=== PATIENT | female | born 1975 | race Caucasian/White ===

== ENCOUNTER 2025-07-09 09:54 | Inpatient (IN) ==
[2025-07-09 10:17] LABS: BLOOD/HEMOGLOBIN,URINE NEGATIVE (NEGATIVE); LEUKOCYTE ESTERASE ,URINE 1+ (NEGATIVE); NITRITES,URINE NEGATIVE (NEGATIVE)
--- NOTE | 2025-07-09 10:25 | DR.GENAD ---
HPI Time Seen Time Seen by Provider: 07/09/25 10:18 PCP Primary Care Physician: [facility] Complaint/Symptoms Chief Complaint Doctors Comments: 49 yo F, hx kidney stones, no other med hx, surg hx of complete hysterectomy, c/o R flank pain and RLQ abd pain for past 6 days. Denies other symptoms. Denies fever/chills, n/v/d. denies urinary symptoms. Chief Complaint:: Patient states she has been having right flank pain, RLQ radiating to right lower back since last . She Saw her PCP and had a CT scan in [place] on Monday. Today she states her RLQ is edematous COVID-19 Coronavirus risk:travel/contact w/high risk person: No Has patient experienced Coronavirus symptoms: No Source History Provided: Patient Mode of Arrival Mode of Arrival: Ambulatory Timing Onset of Chief Complaint: 07/03/25 PMH PMH Past Medical History: No Past Surgical History: Yes Surgical History: , [employer] CORE SAND Surgery, Hysterectomy and Tonsillectomy Past Surgical History Comment: breast reduction Family History History of Family Medical Conditions: Yes Family Medical History: Diabetes Mellitus, Cancer, Coronary Artery Disease, Heart Failure, Sudden Cardiac and Hypertension Social History Does patient currently use any type of tobacco product: No Have you used tobacco products in the last 12 months: No Type of Tobacco Use: None Does any household member use tobacco: No Alcohol Use: Rarely Do you use any recreational Drugs:: No Lives With: Spouse Travel Risk Coronavirus risk:travel/contact w/high risk person: No Has patient experienced Coronavirus symptoms: No Infectious screening In the last 2 months have you had wt loss of >10#?: NO Have you had fever, night sweats or hemotysis?: No Have you traveled outside the country in the last 6 months?: No Isolation: Standard ROS Review of Systems Gastrointestinal/Abdominal: Abdominal Pain (RLQ) Genitourinary: Pain (R flank) All Other Systems: Reviewed and Negative PE Vital Signs Vitals: Vital Signs Temperature 98.8 F Pulse Rate 70 Respiratory Rate 16 Respiratory Rate 16 Respiratory Rate 16 Blood Pressure 134/75 O2 Sat by Pulse Oximetry 99 General Limitations: No Limitations General Appearance: Alert and In No Apparent Distress Head Head Exam: Normal Inspection Eyes Eye exam: Normal Appearance ENT ENT Exam: Normal Exam External Ear Exam: Normal External Inspection TM/Canal Exam: Bilateral: Normal Nose Exam: Normal Nose Exam Mouth Exam: Normal Inspection Throat Exam: Normal Inspection Neck Neck Exam: Normal Inspection Chest Chest Inspection: Normal Inspection Respiratory Respiratory Exam: Normal Lung Sounds Bilat Respiratory Exam: Bilateral: Clear to Auscultation Cardiovascular Cardiovascular Exam: Regular Rate and Normal Rhythm Abdominal Exam Abdominal Exam: Normal Bowel Sounds, Soft, Tenderness (RLQ), Guarding and Rebound Extremities Extremities Exam: Normal Inspection Back Back Exam: Normal Inspection Neurologic Neurological Exam: Alert and Oriented X3 Psychiatric Psychiatric Exam: Normal Affect and Normal Mood Skin Skin Exam: Warm, Dry, Intact and Normal Color ROR Labs Reviewed Laboratory Results Reviewed?: Yes 07/09/25 10:07/09/25 10: Laboratory: WBC 5.4 X10^3/uL (3.6-10.0) 07/09/25 10: RBC 4.93 X10^6/uL (3.5-5.4) 07/09/25 10: Hgb 14.3 g/dL (12.0-16.0) 07/09/25 10: Hct 42.0 % (36.0-47.0) 07/09/25 10: MCV 85.3 fL (80.0-100.0) 07/09/25 10: MCH 29.1 pg (27.0-34.0) 07/09/25 10: MCHC 34.1 g/dL (33.0-35.0) 07/09/25 10: RDW 13.6 % (11.6-16.5) 07/09/25 10: Plt Count 295 X10^3/uL (150.0-450.0) 07/09/25 10: MPV 7.3 fL (7.4-11.0) L 07/09/25 10: Neut % (Auto) 64.7 % (42.0-75.0) 07/09/25 10: Lymph % (Auto) 26.6 % (21.0-51.0) 07/09/25 10: [place] % (Auto) 6.0 % (0.0-13.0) 07/09/25 10: Eos % (Auto) 2.3 % (0.9-2.9) 07/09/25 10: Baso % (Auto) 0.4 % (0.2-1.0) 07/09/25 10: Neut # (Auto) 3.5 x10^3/uL (2.2-4.8) 07/09/25 10:26 Lymph # (Auto) 1.4 X10^3/uL (1.3-2.9) 07/09/25 10: [place] # (Auto) 0.3 x10^3/uL (0.3-0.8) 07/09/25 10: Eos # (Auto) 0.1 x10^3/uL (0.0-0.2) 07/09/25 10: Baso # (Auto) 0.0 X10^3/uL (0.0-0.1) 07/09/25 10: Absolute Nucleated RBC 0.0 /100WBC 07/09/25 10: Sodium 139 mmol/L (136-145) 07/09/25 10: Corrected Sodium TNP 07/09/25 10: Potassium 4.2 mmol/L (3.5-5.1) 07/09/25 10: Chloride 103 mmol/L (98-107) 07/09/25 10: Carbon Dioxide 32.1 mmol/L (21-32) H 07/09/25 10: BUN 10 mg/dL (7-18) 07/09/25 10: Creatinine 0.66 mg/dL (0.55-1.02) 07/09/25 10: Est GFR (MDRD) Af Amer > 60 (>60) 07/09/25 10: Est GFR (MDRD) Non-Af > 60 (>60) 07/09/25 10: Glucose 100 mg/dL (65-99) H 07/09/25 10: Calcium 9.4 mg/dL (8.5-10.1) 07/09/25 10: Corrected Calcium TNP 07/09/25 10: Total Bilirubin 0.30 mg/dL (0.2-1.0) 07/09/25 10: AST 15 Units/L (15-37) 07/09/25 10: ALT 13 Units/L (12-78) 07/09/25 10: Alkaline Phosphatase 99 Units/L (46-116) 07/09/25 10: Total Protein 7.7 g/dL (6.4-8.2) 07/09/25 10: Albumin 3.9 g/dL (3.4-5.0) 07/09/25 10: Globulin 3.8 g/dL (2.5-4.5) 07/09/25 10: Albumin/Globulin Ratio 1.0 Ratio (1.1-2.1) L 07/09/25 10: Lipase 39 Units/L (16-77) 07/09/25 10:26 Specimen Type Clean catch urine 07/09/25 10:00 Urine Color Straw (YELLOW) 07/09/25 10:00 Urine Appearance Clear (CLEAR) 07/09/25 10:00 Urine pH 6.5 (5.0 - 8.0) 07/09/25 10:00 Ur Specific [place] 1.010 (1.000-1.030) 07/09/25 10:00 Urine Protein Negative (NEGATIVE) 07/09/25 10:00 Urine Glucose (UA) Negative (NEGATIVE) 07/09/25 10:00 Urine Ketones Negative (NEGATIVE) 07/09/25 10:00 Urine Blood Negative (NEGATIVE) 07/09/25 10:00 Urine Nitrite Negative (NEGATIVE) 07/09/25 10:00 Urine Bilirubin Negative (NEGATIVE) 07/09/25 10:00 Urine Urobilinogen Normal (NORMAL) 07/09/25 10:00 Ur Leukocyte Esterase 1+ (NEGATIVE) 07/09/25 10:00 Urine RBC None seen /HPF (0-3) 07/09/25 10:00 Urine WBC 0-2 /HPF (0-5) 07/09/25 10:00 Ur Squamous Epith Cells Rare /HPF (NEGATIVE) 07/09/25 10:00 Urine Bacteria Negative /HPF (NEGATIVE) 07/09/25 10:00 Ur Culture Indicated? No/not indicated 07/09/25 10:00 Opioid Opioid Risk Tool Age (Cooper box if 16-45): No History of Preadolescent Sexual Abuse: No Total: 0 Total Score Risk Category: Low Risk Copyright: Darrick DEL TORO predicting aberrant behaviors Discharge Plan Diagnosis Discharge Problem: Abdominal mass, right lower quadrant, Free fluid in pelvis Discharge Plan Patient Disposition: ADMITTED INPATIENT Condition: Stable Prescriptions: No Action [facility] Concerns: Post Hospitalization: new medications and changes needed to prevent readmission or further decline. Pt educated and given instructions on all concerns. Plan of Treatment: Continue with present treatment and follow up plan. Pt is to keep follow up appointment as instructed and take medications as ordered. Orders to Discharge Patient Discharge Orders: Transfer (Routine); Ordered 07/09/25 Ordered By: Jose David Jenkins Follow ups/Referrals Follow ups/Referrals: [facility],None [Primary Care Provider] - 3 days Instructions Stand Alone Forms: Find Help Web Site, Post Hospital Follow Up Care Print Language: VENEZUEL[place] Provider Note Additional Notes spoke with Dr Bryant who agrees to admit pt for further evaluation for possible surgery on Ovarian Mass & abd free fluid.
[2025-07-09] MEDS: TORADOL 15 MG VIAL IVP ONE (10:30)
[2025-07-09 10:33] LABS: APPEARANCE,URINE CLEAR (CLEAR)
[2025-07-09 10:34] LABS: SQUAMOUS EPITHELIAL CELL,UR RARE /HPF (NEGATIVE)
[2025-07-09 10:36] LABS: MEAN PLATELET VOLUME 7.3 fL (7.4-11.0); RED CELL DISTRIBUTION WIDTH 13.6 % (11.6-16.5)
[2025-07-09 10:56] LABS: CREATININE 0.66 mg/dL (0.55-1.02); eGFR NON BLACK RACES > 60 (>60)
[2025-07-09] MEDS ORDERED: OMNIPAQUE 350 mg/mL 100 mL BTL 100 ML ONE (10:59)
[2025-07-09] MEDS: OMNIPAQUE 350 mg/mL 100 mL BTL IVP NR (11:08)
--- NOTE | 2025-07-09 12:57 | CT ---
EXAM: CT abdomen pelvis with contrast HISTORY: Right lower quadrant pain TECHNIQUE: Axial postcontrast images with coronal and sagittal reformats. Dose reduction procedures were used with mA/kv adjusted for body size. COMPARISON: None FINDINGS: Lung bases are clear. Liver, spleen, adrenal glands, and pancreas are within normal limits. No opaque stones present within the gallbladder. Kidneys are unobstructed and without stones or masses. No ureteral calculi are identified. Mild calcific atherosclerotic changes present in a nondilated abdominal aorta. No enlarged intraperitoneal or retroperitoneal lymphadenopathy is identified. The appendix is not identified with absolute certainty. There are no definite pericecal inflammatory changes to suggest acute appendicitis. However there is a moderately large amount of fluid in the lower peritoneum and pelvis. The source of this fluid may be a leaking 6.4 x 3.5 by 3.3 cm septated right adnexal mass. Uterus is absent and the ovaries are not definitely visualized. This could still be a right ovarian mass or perhaps paraovarian or mesenteric mass. Correlation with pelvic sonography may be of further diagnostic value. Video Production Engineer or surgical evaluation may be indicated. No bladder abnormality is identified. No lytic or blastic skeletal lesions of significance identified. IMPRESSION: Appendix not identified with absolute certainty. No secondary signs of appendicitis appear to be present. Large amount of fluid in the lower peritoneum and in the pelvis possibly due to a leaking septated cystic right adnexal mass measuring approximatly 6.4 x 3.5 x 3.3 cm. Pelvic sonography may be of further diagnostic value. Video Production Engineer or surgical evaluation may be indicated. THIS IS AN ELECTRONICALLY VERIFIED FINAL REPORT 07/09/2025 12:53 PM - Electronically signed by Nathen Stark MD
--- NOTE | 2025-07-09 13:59 | EKG ---
Test Reason : pre-op Blood Pressure : */* mmHG Vent. Rate : 62 BPM Atrial Rate : 62 BPM P-R Int : 132 ms QRS Dur : 84 ms QT Int : 406 ms P-R-T Axes : 51 28 49 degrees QTc Int : 412 ms Normal sinus rhythm Low voltage QRS Borderline ECG No previous ECGs available Confirmed by Marek Marroquin MD ([id number]) on 07/10/2025 5:55:41 AM Referred By: Confirmed By: Marek Marroquin MD
[2025-07-09] MEDS ORDERED: CONSULT PHARMACY - POTASSIUM & MAGNESIUM XX SCH (14:16)
[2025-07-09] MEDS ORDERED: ULTRAM PO PRN (14:16)
[2025-07-09] MEDS ORDERED: ZOFRAN TAB 4 MG PO PRN (14:16)
[2025-07-09] MEDS ORDERED: TYLENOL 325 MG TAB PO PRN (14:16)
[2025-07-09] MEDS: NS 1,000 ML IV 1,000 ML IV SCH (14:34)
[2025-07-09 15:13] VITALS: BMI 30.7
--- NOTE | 2025-07-09 17:33 | US ---
EXAM: PELVIC (NON OB) HISTORY: PELVIC MASS; COMPARISON: CT of the abdomen and pelvis July 09, 2025 TECHNIQUE: Non obstetrical pelvic ultrasound FINDINGS: The uterus is reported surgically absent. Ovaries are reported surgically absent and unseen. Moderate volume of free fluid is present in the pelvis. Complex, hypoechoic right adnexal mass is present spanning 6.5 X 5.1 X 4.6 cm, nonspecific in appearance. IMPRESSION: Indeterminate right adnexal mass with a moderate volume of free fluid. The etiology is uncertain but malignant mass can not be excluded and gynecological evaluation is suggested. Prior hysterectomy and bilateral oophorectomy reported. THIS IS AN ELECTRONICALLY VERIFIED FINAL REPORT 07/09/2025 5:29 PM - Electronically signed by Eder Abad MD
[2025-07-09] MEDS: ANCEF VIAL 1 GRAM IVP SCH (21:21)
[2025-07-09] MEDS: TORADOL 30 MG VIAL IVP PRN (21:22)
--- NOTE | 2025-07-09 22:29 | RAD ---
EXAM: CHEST, 1 VIEW HISTORY: surgical clearence; surgical clearence ABD COMPARISON: None. TECHNIQUE: Single frontal chest radiograph FINDINGS: Cardiomediastinal silhouette within normal limits. Lungs clear. Pleural spaces are clear. Bones unremarkable. IMPRESSION: No active pulmonary disease. THIS IS AN ELECTRONICALLY VERIFIED FINAL REPORT 07/09/2025 10:15 PM - Electronically signed by Patrice Patton MD
[2025-07-10] MEDS: HIBICLENS WASH EXT ONE (05:10)
[2025-07-10 05:50] LABS: MEAN PLATELET VOLUME 7.5 fL (7.4-11.0); RED CELL DISTRIBUTION WIDTH 13.8 % (11.6-16.5)
[2025-07-10 05:59] LABS: COR CA(FOR HYPOALB) 9.1 mg/dL (8.5-10.1); CREATININE 0.75 mg/dL (0.55-1.02); eGFR NON BLACK RACES > 60 (>60)
[2025-07-10] MEDS ORDERED: XYLOCAINE 2 % (PLAIN) ONE (08:00)
[2025-07-10] MEDS ORDERED: KETAMINE HCL ONE (08:00)
[2025-07-10] MEDS ORDERED: ULTANE GAS IN ONE (08:00)
[2025-07-10] MEDS: ZOFRAN INJ 4 MG VIAL IVP PRN ×2 (11:04→13:45)
[2025-07-10] MEDS: LR 1,000 ML IV 0 ML IV PRN (13:30)
[2025-07-10] MEDS: DUONEB 0.5 MG/3 MG (3 mL) NEB ONE (13:41)
[2025-07-10] MEDS: LR 1,000 ML IV 1,000 ML IV ONE (13:43)
[2025-07-10] MEDS: NS 100 ML IV 100 ML ONE (13:44)
[2025-07-10] MEDS: REGLAN INJ 10 MG VIAL IVP PRN (13:45)
[2025-07-10] MEDS: PEPCID 20 MG VIAL IVP PRN (13:45)
[2025-07-10] MEDS: ANCEF VIAL 1 GRAM ONE (13:45)
[2025-07-10] MEDS: FENTANYL VIAL INJ 250 mcg ONE (13:48)
[2025-07-10] MEDS: VERSED ONE (13:48)
[2025-07-10] MEDS: REGLAN INJ 10 MG VIAL ONE (13:49)
[2025-07-10] MEDS: ZOFRAN INJ 4 MG VIAL ONE (13:49)
[2025-07-10] MEDS: PEPCID 20 MG VIAL ONE (13:53)
[2025-07-10] MEDS: MARCAINE/EPINEPHRINE ONE (13:55)
[2025-07-10] MEDS: BRIDION ONE (13:56)
[2025-07-10] MEDS: DIPRIVAN VIAL 20 ML ONE (13:56)
[2025-07-10] MEDS: ZEMURON 100 MG VIAL ONE (13:56)
[2025-07-10] MEDS: VERSED IVP PRN (13:58)
[2025-07-10] MEDS: OFIRMEV IV 1000 MG VIAL 1,000 MG/100 ML VIAL IV ONE (13:59)
[2025-07-10] MEDS: ANCEF VIAL 1 GRAM IV PRN (14:00)
[2025-07-10] MEDS: XYLOCAINE 2 % (PLAIN) INJ PRN (14:07)
[2025-07-10] MEDS: DIPRIVAN VIAL 170 ML IVP PRN (14:08)
[2025-07-10] MEDS: ZEMURON 100 MG VIAL IVP PRN ×2 (14:08→15:44)
[2025-07-10] MEDS: FENTANYL VIAL INJ 100 mcg IVP PRN ×2 (14:21→15:43)
[2025-07-10] MEDS: KETAMINE HCL IV PRN (14:31)
[2025-07-10] MEDS: POLYMYXIN B SULFATE ONE (14:32)
[2025-07-10] MEDS ORDERED: ANCEF VIAL 1 GRAM 1 G in NS 100 ML IV 100 ML IV SCH (15:00)
[2025-07-10] MEDS ORDERED: BENADRYL INJ 50 MG VIAL IVP PRN (15:25)
[2025-07-10] MEDS ORDERED: BARHEMSYS INJ IVP PRN (15:25)
[2025-07-10] MEDS ORDERED: ZOFRAN INJ 4 MG VIAL IVP PRN (15:25)
[2025-07-10] MEDS: TORADOL 30 MG VIAL IVP PRN (15:43)
[2025-07-10] MEDS: OFIRMEV IV 1000 MG VIAL 1,000 MG/100 ML VIAL IV PRN (15:54)
[2025-07-10] MEDS: BRIDION IVP PRN (16:05)
[2025-07-10] MEDS: DILAUDID INJ IVP PRN ×2 (16:43→20:04)
[2025-07-10] MEDS: ZOSYN VIAL 3.375 GRAMS 3.375 G in NS 100 ML IV 100 ML IV SCH (17:14)
[2025-07-10] MEDS: D5 1/2 NS 1,000 ML 1,000 ML IV SCH (17:14)
[2025-07-10] MEDS: NS 250 ML IV 25 ML IV PRN (17:21)
[2025-07-10] MEDS: PROTONIX INJ 40 MG VIAL IVP SCH (21:09)
[2025-07-11 07:01] LABS: MEAN PLATELET VOLUME 7.7 fL (7.4-11.0); RED CELL DISTRIBUTION WIDTH 13.9 % (11.6-16.5)
[2025-07-11 07:10] LABS: COR CA(FOR HYPOALB) 8.8 mg/dL (8.5-10.1); COR NA(FOR HYPERGLY) 137 mmol/L (136-145); CREATININE 0.62 mg/dL (0.55-1.02); eGFR NON BLACK RACES > 60 (>60)
[2025-07-11] MEDS: LOVENOX INJ 40 MG SYR SC SCH (08:58)
[2025-07-11] MEDS: LR 1,000 ML IV 1,000 ML IV ONE (09:21)
[2025-07-11] MEDS: TORADOL 30 MG VIAL ONE (09:21)
[2025-07-11] MEDS ORDERED: LR 1,000 ML IV 1,000 ML IV SCH (10:00)
--- NOTE | 2025-07-11 12:21 | DR.PROGNOT ---
HOSPITAL PROGRESS NOTE Progress Note for Day of: Progress Note Date: 07/11/25 Chief Complaint Chief Complaint: Patient is status post exploratory laparotomy, evacuation of large amount of volume mucous material from the pelvis and right lower quadrant, lysis of adhesions, biopsy of pelvic floor, appendectomy day 1. Patient is doing very well with moderate incisional pain, no nausea or vomiting. White count is 10.3 with shift to the left, normal electrolytes, normal BUN/creatinine and liver function tests. Lung is clear, regular rhythm, abdomen is soft with positive bowel sounds. Past Medical Family Social History Allergies: Allergies meperidine (From Demerol) Allergy (Verified 07/09/25 10:08) morphine Allergy (Verified 07/09/25 10:08) Vital Signs Vital Signs: Vital Signs Temperature 98.6 F Pulse Rate [Bilateral Radial] 60 Respiratory Rate 20 Respiratory Rate 20 Respiratory Rate 17 Blood Pressure [Right Arm] 121/59 O2 Sat by Pulse Oximetry 100 Physical Exam Oriented: Normal Eyes: Normal Ear: Normal Nose: Normal Throat: Normal Respiratory: Normal Cardiovascular: Normal GI:Auscultation: Decreased (Present but decreased) Mood Description: Calm Speech Pattern: Clear and Appropriate Laboratory and Diagnostics 07/11/25 06:27 07/11/25 06:27 Labs: Laboratory WBC 10.3 X10^3/uL (3.6-10.0) H 07/11/25 06:27 RBC 4.35 X10^6/uL (3.5-5.4) 07/11/25 06:27 Hgb 12.6 g/dL (12.0-16.0) 07/11/25 06:27 Hct 37.3 % (36.0-47.0) 07/11/25 06:27 MCV 85.6 fL (80.0-100.0) 07/11/25 06:27 MCH 29.0 pg (27.0-34.0) 07/11/25 06:27 MCHC 33.9 g/dL (33.0-35.0) 07/11/25 06:27 RDW 13.9 % (11.6-16.5) 07/11/25 06:27 Plt Count 229 X10^3/uL (150.0-450.0) 07/11/25 06:27 MPV 7.7 fL (7.4-11.0) 07/11/25 06:27 Neut % (Auto) 85.6 % (42.0-75.0) H 07/11/25 06:27 Lymph % (Auto) 7.1 % (21.0-51.0) L 07/11/25 06:27 [place] % (Auto) 5.4 % (0.0-13.0) 07/11/25 06:27 Eos % (Auto) 0.3 % (0.9-2.9) L 07/11/25 06:27 Baso % (Auto) 1.6 % (0.2-1.0) H 07/11/25 06:27 Neut # (Auto) 8.8 x10^3/uL (2.2-4.8) H 07/11/25 06:27 Lymph # (Auto) 0.7 X10^3/uL (1.3-2.9) L 07/11/25 06:27 [place] # (Auto) 0.6 x10^3/uL (0.3-0.8) 07/11/25 06:27 Eos # (Auto) 0.0 x10^3/uL (0.0-0.2) 07/11/25 06:27 Baso # (Auto) 0.2 X10^3/uL (0.0-0.1) H 07/11/25 06:27 Absolute Nucleated RBC 0.3 /100WBC 07/11/25 06:27 Sodium 137 mmol/L (136-145) 07/11/25 06:27 Corrected Sodium 137 mmol/L (136-145) 07/11/25 06:27 Potassium 4.0 mmol/L (3.5-5.1) 07/11/25 06:27 Chloride 103 mmol/L (98-107) 07/11/25 06:27 Carbon Dioxide 30.0 mmol/L (21-32) 07/11/25 06:27 BUN 11 mg/dL (7-18) 07/11/25 06:27 Creatinine 0.62 mg/dL (0.55-1.02) 07/11/25 06:27 Est GFR (MDRD) Af Amer > 60 (>60) 07/11/25 06:27 Est GFR (MDRD) Non-Af > 60 (>60) 07/11/25 06:27 Glucose 116 mg/dL (65-99) H 07/11/25 06:27 Calcium 7.9 mg/dL (8.5-10.1) L 07/11/25 06:27 Corrected Calcium 8.8 mg/dL (8.5-10.1) 07/11/25 06:27 Total Bilirubin 0.40 mg/dL (0.2-1.0) 07/11/25 06:27 AST 14 Units/L (15-37) L 07/11/25 06:27 ALT 13 Units/L (12-78) 07/11/25 06:27 Alkaline Phosphatase 75 Units/L (46-116) 07/11/25 06:27 Total Protein 6.0 g/dL (6.4-8.2) L 07/11/25 06:27 Albumin 2.9 g/dL (3.4-5.0) L 07/11/25 06:27 Globulin 3.1 g/dL (2.5-4.5) 07/11/25 06:27 Albumin/Globulin Ratio 0.9 Ratio (1.1-2.1) L 07/11/25 06:27 Lipase 39 Units/L (16-77) 07/09/25 10:26 Specimen Type Clean catch urine 07/09/25 10:00 Urine Color Straw (YELLOW) 07/09/25 10:00 Urine Appearance Clear (CLEAR) 07/09/25 10:00 Urine pH 6.5 (5.0 - 8.0) 07/09/25 10:00 Ur Specific [place] 1.010 (1.000-1.030) 07/09/25 10:00 Urine Protein Negative (NEGATIVE) 07/09/25 10:00 Urine Glucose (UA) Negative (NEGATIVE) 07/09/25 10:00 Urine Ketones Negative (NEGATIVE) 07/09/25 10:00 Urine Blood Negative (NEGATIVE) 07/09/25 10:00 Urine Nitrite Negative (NEGATIVE) 07/09/25 10:00 Urine Bilirubin Negative (NEGATIVE) 07/09/25 10:00 Urine Urobilinogen Normal (NORMAL) 07/09/25 10:00 Ur Leukocyte Esterase 1+ (NEGATIVE) 07/09/25 10:00 Urine RBC None seen /HPF (0-3) 07/09/25 10:00 Urine WBC 0-2 /HPF (0-5) 07/09/25 10:00 Ur Squamous Epith Cells Rare /HPF (NEGATIVE) 07/09/25 10:00 Urine Bacteria Negative /HPF (NEGATIVE) 07/09/25 10:00 Ur Culture Indicated? No/not indicated 07/09/25 10:00 Blood Type A POSITIVE 07/10/25 13:50 Antibody Screen Negative 07/10/25 13:46 Assessment and Plan 1: Status post laparotomy for ruptured appendix with large amount of mucus material in the pelvis and right lower quadrant and right gutter. Patient was found to have moderate adhesions as well. To advance her diet, DC Chaparro catheter, DVT prophylaxis, IV antibiotics, out of bed and same postoperative care. Problem Patient Problems: Patient Problems Free fluid in pelvis (Acute) R18.8 Abdominal mass, right lower quadrant (Acute) R19.03
[2025-07-12 00:21] VITALS: RESP 18
[2025-07-12] MEDS: NORCO 5/325 MG TAB PO PRN (05:41)
[2025-07-12 06:12] LABS: MEAN PLATELET VOLUME 7.7 fL (7.4-11.0); RED CELL DISTRIBUTION WIDTH 13.9 % (11.6-16.5)
[2025-07-12 06:23] LABS: COR CA(FOR HYPOALB) 8.8 mg/dL (8.5-10.1); COR NA(FOR HYPERGLY) 139 mmol/L (136-145); CREATININE 0.66 mg/dL (0.55-1.02); eGFR NON BLACK RACES > 60 (>60)
[2025-07-12 08:59] VITALS: BP 125/60; PULSE 75; TEMP 97.6; O2SAT 97
== END 2025-07-12 11:15 | disposition home or self-care (01) | DRG 399 ==
LOC: ER 09:54 → MED/SURG 09:54
PROVIDERS: ADMIT Surgery; ATTEND Surgery
DX: K21.9 Gastro-esophageal reflux disease without esophagitis; Z87.11 Personal history of peptic ulcer disease; K35.201 Acute appendicitis with generalized peritonitis, with perforation, without abscess; Z01.810 Encounter for preprocedural cardiovascular examination; R19.03 Right lower quadrant abdominal swelling, mass and lump; E83.51 Hypocalcemia; Z87.442 Personal history of urinary calculi; K66.0 Peritoneal adhesions (postprocedural) (postinfection); R10.31 Right lower quadrant pain

== ENCOUNTER 2025-07-14 10:37 | Observation (INO) ==
[2025-07-14 11:19] VITALS: BMI 31.8
[2025-07-14] MEDS ORDERED: OMNIPAQUE 350 mg/mL 100 mL BTL 100 ML ONE (11:27)
[2025-07-14 11:28] LABS: MEAN PLATELET VOLUME 7.4 fL (7.4-11.0); RED CELL DISTRIBUTION WIDTH 13.3 % (11.6-16.5)
[2025-07-14] MEDS: OMNIPAQUE 350 mg/mL 100 mL BTL IVP NR (11:36)
[2025-07-14 11:45] LABS: COR CA(FOR HYPOALB) 9.3 mg/dL (8.5-10.1); CREATININE 0.84 mg/dL (0.55-1.02); eGFR NON BLACK RACES > 60 (>60)
--- NOTE | 2025-07-14 12:28 | CT ---
EXAM: ABDCMEN/PELVIS WITH CON HISTORY: post exploratory laparotomy pain; COMPARISON: 07/09/2025 TECHNIQUE: CT of the abdomen and pelvis obtained with IV contrast. dose reduction techniques including Automated Exposure Control (AEC) and adjustment of mA and kV were utilized. FINDINGS: The visualized portions of the lower thorax demonstrate no acute process. No acute osseous abnormality. The liver, gallbladder, spleen, pancreas, bilateral adrenal glands, and bilateral kidneys demonstrate no acute process. No evidence of bowel obstruction. The appendix is surgically absent. Interval postsurgical changes with midline surgical ja. Mild fatty induration in the lower abdomen. Trace likely reactive free fluid in the pelvis. The bladder is unremarkable. Prior hysterectomy. No free air. Nonaneurysmal aorta. IMPRESSION: Interval postsurgical changes with trace fluid in the pelvis and mild induration in the lower abdominal mesentery, likely due to recent surgical change. No obvious surgical complication. Continued close follow-up recommended. THIS IS AN ELECTRONICALLY VERIFIED FINAL REPORT 07/14/2025 12:25 PM - Electronically signed by Nathen Stark MD
[2025-07-14] MEDS: DILAUDID INJ IVP ONE (12:48)
--- NOTE | 2025-07-14 13:14 | ED.ABDFE ---
HPI Time Seen Time Seen by Provider: 07/14/25 13:13 PCP Primary Care Physician: Dr. Ceja Complaint Doctors Chief Complaint Comments: Patient had abdominal pain surgery on and has been having worsening right-sided abdominal pain and back pain over the last couple of days. Patient states that the pain was intense she does have a history of passing kidney stones. Denies fever. Chief Complaint:: Patient c/o right sided abdomen and back pain. had abdomen surgery wtih Dr. Ceja on . 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 Family History History of Family Medical Conditions: Yes Family Medical History: Cancer and Heart Failure Social History Do you use any recreational Drugs:: No Lives Where: Home Travel Risk Coronavirus risk:travel/contact w/high risk person: No Has patient experienced Coronavirus symptoms: No Infectious screening Have you traveled outside the country in the last 6 months?: No Isolation: Standard ROS Review of Systems Constitutional: No Symptoms Reported; negative Fever Eyes: No Symptoms Reported ENTM: No Symptoms Reported Respiratoy: No Symptoms Reported; negative Short of Breath or Wheezing Cardiovascular: No Symptoms Reported Gastrointestinal/Abdominal: See HPI Genitourinary: No Symptoms Reported Neurological: No Symptoms Reported Musculoskeletal: No Symptoms Reported Integumentary: No Symptoms Reported Hematologic/Lymphatic: No Symptoms Reported Endocrine: No Symptoms Reported Psychiatric: No Symptoms Reported All Other Systems: Reviewed and Negative PE Vital Signs Vitals: Vital Signs Temperature 97.7 F Pulse Rate 64 Pulse Rate 62 Pulse Rate 64 Pulse Rate 64 Pulse Rate 60 Pulse Rate 64 Pulse Rate 62 Pulse Rate 61 Pulse Rate 103 Respiratory Rate 20 Respiratory Rate 22 Blood Pressure 142/75 Blood Pressure 142/75 Blood Pressure 143/73 Blood Pressure 172/77 O2 Sat by Pulse Oximetry 99 O2 Sat by Pulse Oximetry 96 O2 Sat by Pulse Oximetry 97 O2 Sat by Pulse Oximetry 95 O2 Sat by Pulse Oximetry 94 O2 Sat by Pulse Oximetry 96 O2 Sat by Pulse Oximetry 94 O2 Sat by Pulse Oximetry 94 O2 Sat by Pulse Oximetry 99 General Limitations: No Limitations and Language Barrier General Appearance: Alert and In No Apparent Distress Head Head Exam: Normal Inspection Eyes Eye exam: Normal Appearance ENT ENT Exam: Normal Exam Neck Neck Exam: Normal Inspection Chest Chest Inspection: Normal Inspection Respiratory Respiratory Exam: Normal Lung Sounds Bilat Cardiovascular Cardiovascular Exam: Regular Rate and Normal Rhythm Abdominal Exam Abdominal Exam: Normal Bowel Sounds, Soft, Tenderness and Incision (Clean dry and intact); negative Distention, Rebound, Rigidity, Organomegaly or Ascites Rectal Rectal Exam: Deferred Back Back Exam: Normal Inspection Extremeties Extremities Exam: Normal Inspection Neurologic Neurological Exam: Alert and Oriented X3 Psychiatric Psychiatric Exam: Normal Affect and Normal Mood Skin Skin Exam: Warm, Dry and Intact COURSE Treatment Treatment: Patient seen by surgeon, Dr. Mesa here in the ER. Discussed results of workup with patient and family. Will admit patient for pain control under Dr. Mojica. Consultation Called: 14:25 Consultation Comments: Discussed case with Dr. Singh patient to be admitted for monitoring and pain control. ROR Labs Reviewed Laboratory Results Reviewed?: Yes 07/14/25 11:20 07/14/25 11:20 Laboratory: WBC 6.7 X10^3/uL (3.6-10.0) 07/14/25 11:20 RBC 4.27 X10^6/uL (3.5-5.4) 07/14/25 11:20 Hgb 12.4 g/dL (12.0-16.0) 07/14/25 11:20 Hct 36.3 % (36.0-47.0) 07/14/25 11:20 MCV 85.1 fL (80.0-100.0) 07/14/25 11:20 MCH 29.0 pg (27.0-34.0) 07/14/25 11:20 MCHC 34.0 g/dL (33.0-35.0) 07/14/25 11:20 RDW 13.3 % (11.6-16.5) 07/14/25 11:20 Plt Count 275 X10^3/uL (150.0-450.0) 07/14/25 11:20 MPV 7.4 fL (7.4-11.0) 07/14/25 11:20 Neut % (Auto) 76.7 % (42.0-75.0) H 07/14/25 11:20 Lymph % (Auto) 12.6 % (21.0-51.0) L 07/14/25 11:20 [place] % (Auto) 6.4 % (0.0-13.0) 07/14/25 11:20 Eos % (Auto) 4.0 % (0.9-2.9) H 07/14/25 11:20 Baso % (Auto) 0.3 % (0.2-1.0) 07/14/25 11:20 Neut # (Auto) 5.1 x10^3/uL (2.2-4.8) H 07/14/25 11:20 Lymph # (Auto) 0.8 X10^3/uL (1.3-2.9) L 07/14/25 11:20 [place] # (Auto) 0.4 x10^3/uL (0.3-0.8) 07/14/25 11:20 Eos # (Auto) 0.3 x10^3/uL (0.0-0.2) H 07/14/25 11:20 Baso # (Auto) 0.0 X10^3/uL (0.0-0.1) 07/14/25 11:20 Absolute Nucleated RBC 0.1 /100WBC 07/14/25 11:20 Sodium 140 mmol/L (136-145) 07/14/25 11:20 Corrected Sodium TNP 07/14/25 11:20 Potassium 3.7 mmol/L (3.5-5.1) 07/14/25 11:20 Chloride 103 mmol/L (98-107) 07/14/25 11:20 Carbon Dioxide 34.2 mmol/L (21-32) H 07/14/25 11:20 BUN 13 mg/dL (7-18) 07/14/25 11:20 Creatinine 0.84 mg/dL (0.55-1.02) 07/14/25 11:20 Est GFR (MDRD) Af Amer > 60 (>60) 07/14/25 11:20 Est GFR (MDRD) Non-Af > 60 (>60) 07/14/25 11:20 Glucose 99 mg/dL (65-99) 07/14/25 11:20 Calcium 8.6 mg/dL (8.5-10.1) 07/14/25 11:20 Corrected Calcium 9.3 mg/dL (8.5-10.1) 07/14/25 11:20 Total Bilirubin 0.30 mg/dL (0.2-1.0) 07/14/25 11:20 AST 16 Units/L (15-37) 07/14/25 11:20 ALT 14 Units/L (12-78) 07/14/25 11:20 Alkaline Phosphatase 78 Units/L (46-116) 07/14/25 11:20 Total Protein 6.8 g/dL (6.4-8.2) 07/14/25 11:20 Albumin 3.1 g/dL (3.4-5.0) L 07/14/25 11:20 Globulin 3.7 g/dL (2.5-4.5) 07/14/25 11:20 Albumin/Globulin Ratio 0.8 Ratio (1.1-2.1) L 07/14/25 11:20 Amylase 33 Units/L (25-115) 07/14/25 11:20 Lipase 46 Units/L (16-77) 07/14/25 11:20 Other Results Comments: [id number] 1975 Sex: F Location: ER Order Number(s): [id number] Procedure(s):CT ABDOMEN/PELVIS WITH CON Ordering Physician: Hieu Locke Primary Care: Dina Bryant MD Service Date: 07/14/25 Service Time: 104 EXAM: ABDCMEN/PELVIS WITH CON HISTORY: post exploratory laparotomy pain; COMPARISON: 07/09/2025 TECHNIQUE: CT of the abdomen and pelvis obtained with IV contrast. dose reduction techniques including Automated Exposure Control (AEC) and adjustment of mA and kV were utilized. FINDINGS: The visualized portions of the lower thorax demonstrate no acute process. No acute osseous abnormality. The liver, gallbladder, spleen, pancreas, bilateral adrenal glands, and bilateral kidneys demonstrate no acute process. No evidence of bowel obstruction. The appendix is surgically absent. Interval postsurgical changes with midline surgical ja. Mild fatty induration in the lower abdomen. Trace likely reactive free fluid in the pelvis. The bladder is unremarkable. Prior hysterectomy. No free air. Nonaneurysmal aorta. IMPRESSION: Interval postsurgical changes with trace fluid in the pelvis and mild induration in the lower abdominal mesentery, likely due to recent surgical change. No obvious surgical complication. Continued close follow-up recommended. THIS IS AN ELECTRONICALLY VERIFIED FINAL REPORT 07/14/2025 12:25 PM - Electronically signed by Nathen Stark MD Opioid Opioid Risk Tool Age (Cooper box if 16-45): No History of Preadolescent Sexual Abuse: No Total: 0 Total Score Risk Category: Low Risk Copyright: [facility] predicting aberrant behaviors Discharge Plan Diagnosis Discharge Problem: Abdominal pain Discharge Plan Patient Disposition: 09 ADMITTED INPATIENT Condition: Stable Prescriptions: No Action [facility] Concerns: Post Hospitalization: new medications and changes needed to prevent readmission or further decline. Pt educated and given instructions on all concerns. Plan of Treatment: Continue with present treatment and follow up plan. Pt is to keep follow up appointment as instructed and take medications as ordered. Orders to Discharge Patient Discharge Orders: Transfer (Routine); Ordered 07/14/25 Ordered By: Hieu Locke Follow ups/Referrals Follow ups/Referrals: DINA BRYANT [Primary Care Provider, MEDICAL] - 3 days Instructions Stand Alone Forms: Find Help Web Site, Post Hospital Follow Up Care Print Language: YAKUT
[2025-07-14 14:52] LABS: BLOOD/HEMOGLOBIN,URINE NEGATIVE (NEGATIVE); LEUKOCYTE ESTERASE ,URINE NEGATIVE (NEGATIVE); NITRITES,URINE NEGATIVE (NEGATIVE)
[2025-07-14 14:56] LABS: APPEARANCE,URINE CLEAR (CLEAR)
[2025-07-14 15:00] LABS: SQUAMOUS EPITHELIAL CELL,UR FEW /HPF (NEGATIVE)
[2025-07-14] MEDS ORDERED: CONSULT PHARMACY - POTASSIUM & MAGNESIUM XX SCH (16:23)
[2025-07-14] MEDS ORDERED: NS 250 ML IV 25 ML IV PRN (16:23)
[2025-07-14] MEDS ORDERED: TYLENOL 325 MG TAB PO PRN (16:23)
[2025-07-14] MEDS ORDERED: ULTRAM PO PRN (16:23)
[2025-07-14] MEDS ORDERED: MORPHINE SULFATE INJ 2 MG INJ IVP PRN (16:23)
[2025-07-14] MEDS ORDERED: NORCO 5/325 MG TAB PO PRN (16:23)
[2025-07-14] MEDS: PROTONIX INJ 40 MG VIAL IVP SCH (17:30)
[2025-07-14] MEDS: K-DUR TAB 20 MEQ PO SCH (17:31)
[2025-07-14] MEDS: ZOSYN VIAL 3.375 GRAMS 3.375 G in NS 100 ML IV 100 ML IV SCH (17:31)
[2025-07-14] MEDS: D5 1/2 NS 1,000 ML 1,000 ML IV SCH (17:46)
[2025-07-14] MEDS: DILAUDID INJ IVP PRN (17:51)
[2025-07-14] MEDS: VISTARIL PO PRN (19:28)
[2025-07-14] MEDS: COLACE CAP 100 MG PO SCH (22:15)
[2025-07-15 06:43] LABS: MEAN PLATELET VOLUME 7.6 fL (7.4-11.0); RED CELL DISTRIBUTION WIDTH 13.6 % (11.6-16.5)
[2025-07-15 06:52] LABS: COR CA(FOR HYPOALB) 9.2 mg/dL (8.5-10.1); COR NA(FOR HYPERGLY) 139 mmol/L (136-145); CREATININE 0.67 mg/dL (0.55-1.02); eGFR NON BLACK RACES > 60 (>60)
[2025-07-15] MEDS: K-DUR TAB 20 MEQ PO SCH (07:45)
[2025-07-15] MEDS ORDERED: CONSULT PHARMACY - POTASSIUM & MAGNESIUM XX SCH (08:00)
--- NOTE | 2025-07-15 08:48 | DR.PROGNOT ---
HOSPITAL PROGRESS NOTE Progress Note for Day of: Progress Note Date: 07/15/25 Chief Complaint Chief Complaint: Still complaining of pain right lower quadrant as well as pain extending from the right flank area down to the upper thigh with associated rash consistent with shingles. Was complaining of nausea but no vomiting, no bowel movement yet CBC was normal as well as electrolytes and liver function tests. Abdominal pelvic CT scan did not show any significant abnormalities other than the expected changes after appendectomy with a small amount of fluid in the abdomen and pelvis. Patient is afebrile, stable vital signs, she has multiple areas of erythema and skin rash consistent with shingles on the right flank and upper thigh. Past Medical Family Social History Allergies: Allergies hydrocodone Allergy (Mild, Verified 07/14/25 12:36) RASH meperidine (From Demerol) Allergy (Verified 07/14/25 11:20) morphine Allergy (Verified 07/14/25 11:20) Vital Signs Vital Signs: Vital Signs Temperature 97.8 F Temperature 98.3 F Pulse Rate [Bilateral Radial] 67 Pulse Rate [Bilateral Radial] 61 Respiratory Rate 19 Respiratory Rate 20 Respiratory Rate 18 Respiratory Rate 16 Respiratory Rate 20 Blood Pressure [Left Arm] 127/76 Blood Pressure [Left Arm] 121/66 O2 Sat by Pulse Oximetry 94 O2 Sat by Pulse Oximetry 93 Physical Exam Oriented: Normal Eyes: Normal Ear: Normal Nose: Normal Throat: Normal Respiratory: Normal Cardiovascular: Normal : Normal GI:Auscultation: Normal GI:Palpation: Normal GI: Tenderness: RLQ (Soft and flat abdomen with moderate right lower quadrant tenderness.) Skin: Papular (Right flank rash extending to the right upper thigh) Speech Pattern: Clear and Appropriate Laboratory and Diagnostics 07/15/25 06:05 07/15/25 06:05 Labs: Laboratory WBC 5.6 X10^3/uL (3.6-10.0) 07/15/25 06:05 RBC 4.19 X10^6/uL (3.5-5.4) 07/15/25 06:05 Hgb 12.0 g/dL (12.0-16.0) 07/15/25 06:05 Hct 35.8 % (36.0-47.0) L 07/15/25 06:05 MCV 85.3 fL (80.0-100.0) 07/15/25 06:05 MCH 28.6 pg (27.0-34.0) 07/15/25 06:05 MCHC 33.6 g/dL (33.0-35.0) 07/15/25 06:05 RDW 13.6 % (11.6-16.5) 07/15/25 06:05 Plt Count 266 X10^3/uL (150.0-450.0) 07/15/25 06:05 MPV 7.6 fL (7.4-11.0) 07/15/25 06:05 Neut % (Auto) 67.1 % (42.0-75.0) 07/15/25 06:05 Lymph % (Auto) 18.4 % (21.0-51.0) L 07/15/25 06:05 [place] % (Auto) 7.9 % (0.0-13.0) 07/15/25 06:05 Eos % (Auto) 6.2 % (0.9-2.9) H 07/15/25 06:05 Baso % (Auto) 0.4 % (0.2-1.0) 07/15/25 06:05 Neut # (Auto) 3.8 x10^3/uL (2.2-4.8) 07/15/25 06:05 Lymph # (Auto) 1.0 X10^3/uL (1.3-2.9) L 07/15/25 06:05 [place] # (Auto) 0.4 x10^3/uL (0.3-0.8) 07/15/25 06:05 Eos # (Auto) 0.3 x10^3/uL (0.0-0.2) H 07/15/25 06:05 Baso # (Auto) 0.0 X10^3/uL (0.0-0.1) 07/15/25 06:05 Absolute Nucleated RBC 0.0 /100WBC 07/15/25 06:05 Sodium 139 mmol/L (136-145) 07/15/25 06:05 Corrected Sodium 139 mmol/L (136-145) 07/15/25 06:05 Potassium 3.7 mmol/L (3.5-5.1) 07/15/25 06:05 Chloride 103 mmol/L (98-107) 07/15/25 06:05 Carbon Dioxide 27.6 mmol/L (21-32) 07/15/25 06:05 BUN 11 mg/dL (7-18) 07/15/25 06:05 Creatinine 0.67 mg/dL (0.55-1.02) 07/15/25 06:05 Est GFR (MDRD) Af Amer > 60 (>60) 07/15/25 06:05 Est GFR (MDRD) Non-Af > 60 (>60) 07/15/25 06:05 Glucose 112 mg/dL (65-99) H 07/15/25 06:05 Calcium 8.3 mg/dL (8.5-10.1) L 07/15/25 06:05 Corrected Calcium 9.2 mg/dL (8.5-10.1) 07/15/25 06:05 Magnesium 1.8 mg/dL (2.0-2.9) L 07/15/25 06:05 Total Bilirubin 0.30 mg/dL (0.2-1.0) 07/15/25 06:05 AST 22 Units/L (15-37) 07/15/25 06:05 ALT 21 Units/L (12-78) 07/15/25 06:05 Alkaline Phosphatase 70 Units/L (46-116) 07/15/25 06:05 Total Protein 6.4 g/dL (6.4-8.2) 07/15/25 06:05 Albumin 2.9 g/dL (3.4-5.0) L 07/15/25 06:05 Globulin 3.5 g/dL (2.5-4.5) 07/15/25 06:05 Albumin/Globulin Ratio 0.8 Ratio (1.1-2.1) L 07/15/25 06:05 Amylase 33 Units/L (25-115) 07/14/25 11:20 Lipase 46 Units/L (16-77) 07/14/25 11:20 Specimen Type Clean catch urine 07/14/25 14:31 Urine Color Yellow (YELLOW) 07/14/25 14:31 Urine Appearance Clear (CLEAR) 07/14/25 14:31 Urine pH 7.0 (5.0 - 8.0) 07/14/25 14:31 Ur Specific [place] 1.015 (1.000-1.030) 07/14/25 14:31 Urine Protein 1+ (NEGATIVE) 07/14/25 14:31 Urine Glucose (UA) Negative (NEGATIVE) 07/14/25 14:31 Urine Ketones 2+ (NEGATIVE) 07/14/25 14:31 Urine Blood Negative (NEGATIVE) 07/14/25 14:31 Urine Nitrite Negative (NEGATIVE) 07/14/25 14:31 Urine Bilirubin Negative (NEGATIVE) 07/14/25 14:31 Urine Urobilinogen Normal (NORMAL) 07/14/25 14:31 Ur Leukocyte Esterase Negative (NEGATIVE) 07/14/25 14:31 Urine RBC None seen /HPF (0-3) 07/14/25 14:31 Urine WBC 0-2 /HPF (0-5) 07/14/25 14:31 Ur Squamous Epith Cells Few /HPF (NEGATIVE) 07/14/25 14:31 Amorphous Sediment 1+ /HPF (NEGATIVE) 07/14/25 14:31 Urine Bacteria Trace /HPF (NEGATIVE) 07/14/25 14:31 Ur Culture Indicated? No/not indicated 07/14/25 14:31 Assessment and Plan 1: Status post laparotomy and appendectomy for ruptured appendix. Same IV fluid and IV antibiotics. 2: Shingles right flank and upper thigh. To use local steroid ointment and observe Problem Patient Problems: Patient Problems Abdominal pain (Acute) R10.9
[2025-07-15] MEDS ORDERED: PHARMACY CONSULT XX SCH (09:00)
[2025-07-15] MEDS: TORADOL TAB PO PRN (13:28)
[2025-07-15] MEDS: LOVENOX INJ 40 MG SYR SC SCH (13:28)
[2025-07-15] MEDS: PHARMACY CONSULT XX SCH (17:30)
[2025-07-15] MEDS: VALTREX PO SCH (21:40)
[2025-07-16 06:10] LABS: MEAN PLATELET VOLUME 7.5 fL (7.4-11.0); RED CELL DISTRIBUTION WIDTH 13.8 % (11.6-16.5)
[2025-07-16 06:25] LABS: COR CA(FOR HYPOALB) 9.2 mg/dL (8.5-10.1); CREATININE 0.73 mg/dL (0.55-1.02); eGFR NON BLACK RACES > 60 (>60)
[2025-07-16 06:49] VITALS: RESP 18
[2025-07-16] MEDS ORDERED: CONSULT PHARMACY - POTASSIUM & MAGNESIUM XX SCH (07:00)
[2025-07-16] MEDS: MAG-OX TAB PO SCH (09:27)
[2025-07-16] MEDS: K-DUR TAB 20 MEQ PO SCH (09:29)
[2025-07-16 10:21] VITALS: BP 127/72; PULSE 64; TEMP 97.1; O2SAT 98
== END 2025-07-16 11:10 | disposition home or self-care (01) ==
LOC: ER 10:37 → MED/SURG 10:37
PROVIDERS: ADMIT Surgery; ATTEND Surgery
DX: Z87.11 Personal history of peptic ulcer disease; Z87.442 Personal history of urinary calculi; R10.31 Right lower quadrant pain; R10.A1 Flank pain, right side; B02.8 Zoster with other complications; Z98.890 Other specified postprocedural states

== ENCOUNTER 2025-07-28 11:14 | Observation (INO) ==
[2025-07-28 11:37] VITALS: BMI 31.1
[2025-07-28 12:51] LABS: MEAN PLATELET VOLUME 7.6 fL (7.4-11.0); RED CELL DISTRIBUTION WIDTH 13.7 % (11.6-16.5)
[2025-07-28 12:58] LABS: COR CA(FOR HYPOALB) 9.1 mg/dL (8.5-10.1); CREATININE 0.77 mg/dL (0.55-1.02); eGFR NON BLACK RACES > 60 (>60)
--- NOTE | 2025-07-28 13:29 | CT ---
EXAM: CT ABDOMEN AND PELVIS WITHOUT CONTRAST HISTORY: abd swelling/pain; had appendix and tumor removed 07/10/[address] Ceja. COMPARISON: July 14, 2025. TECHNIQUE: Axial CT images were obtained through the abdomen and pelvis without contrast. Coronal reformatted images were included. All CT scans at this facility use dose modulation, iterative reconstruction, and/or weight based dosing when appropriate to reduce radiation dose to as low as reasonably achievable. FINDINGS: Please note that without the use of intravenous contrast, evaluation of organ parenchyma is limited. LOWER THORAX: Normal ABDOMEN: LIVER: Normal GALLBLADDER: Normal SPLEEN: Normal PANCREAS: Normal KIDNEYS: Normal ADRENAL GLANDS: Normal GI TRACT: Mild small bowel dilation noted within the left abdomen, suggesting possible enteritis. No evidence of bowel obstruction. Postoperative changes of appendectomy noted. LYMPH NODES: No enlarged nodes VESSELS: Mild atherosclerosis. PERITONEUM / RETROPERITONEUM: Small volume ascites appears increased in volume when compared to previous examination. Healed anterior abdominal wall incision. PELVIS: BLADDER: Normal GENITALS: Hysterectomy BONES: Degenerative changes noted within the lumbar spine and pelvis. IMPRESSION: Progressive small volume ascites. Dilated small bowel loops in the left abdomen suggests possible enteritis. No evidence of rony bowel obstruction. THIS IS AN ELECTRONICALLY VERIFIED FINAL REPORT 07/28/2025 1:26 PM - Electronically signed by Radu Mitchell MD
--- NOTE | 2025-07-28 13:42 | ED.ABDFE ---
HPI Time Seen Time Seen by Provider: 07/28/25 12:48 PCP Primary Care Physician: Cindy Hassan NP HPI Comment HPI Comment: Patient sent to the ED via her surgeon Dr Ceja Who recently had it removed the patient's ruptured appendix. Patient returns today with abdominal pain and nausea vomiting. Patient she has not been able to hold down any solid foods for the past several days. Complaint Chief Complaint:: Patient c/o vomiting, abdomen swelling and pain since Monday. reports no solid foods since Monday. COVID-19 Coronavirus risk:travel/contact w/high risk person: No Has patient experienced Coronavirus symptoms: No Source History Provided: Patient Mode of arrival Mode of Arrival: Ambulatory Timing Onset of Chief Complaint: 07/25/25 PMH PMH Past Medical History: Yes Past Surgical History: Yes Surgical History: Appendectomy and Cholecystectomy Family History History of Family Medical Conditions: Yes Family Medical History: Diabetes Mellitus, [place], Coronary Artery Disease and Heart Failure Social History Type of Tobacco Use: None Alcohol Use: None Do you use any recreational Drugs:: No Lives With: Spouse Lives Where: Home Travel Risk Coronavirus risk:travel/contact w/high risk person: No Has patient experienced Coronavirus symptoms: No Infectious screening Have you traveled outside the country in the last 6 months?: No Isolation: Standard ROS Review of Systems Constitutional: No Symptoms Reported, Loss of Appetite and Other (Nausea abdominal discomfort. Recent abdominal surgery secondary to ruptured appendix) Eyes: No Symptoms Reported Respiratoy: No Symptoms Reported; negative Hacking Cough, Orthopnea, Short of Breath, Stridor or Wheezing Cardiovascular: No Symptoms Reported; negative Chest Pain, Palpitations, Syncope or Cyanosis Gastrointestinal/Abdominal: Abdominal Pain and Nausea; negative No Symptoms Reported or Food Intolerance Neurological: No Symptoms Reported; negative Seizure, Dizziness or Speech Problem Musculoskeletal: No Symptoms Reported; negative Joint Pain Integumentary: No Symptoms Reported All Other Systems: Reviewed and Negative PE Vital Signs Vitals: Vital Signs Temperature 97.9 F Pulse Rate 78 Respiratory Rate 18 Blood Pressure 114/68 O2 Sat by Pulse Oximetry 98 General Limitations: No Limitations and Language Barrier General Appearance: Alert and Other (Appears very uncomfortable complains of her abdomen abdominal discomfort. Speech is clear and coherent family at bedside) Head Head Exam: Normal Inspection and Atraumatic Eyes Eye exam: Normal Appearance, PERRL and EOMI Neck Neck Exam: Normal Inspection and Trachea Midline Chest Chest Inspection: Normal Inspection and Symmetric Chest Wall Rise Respiratory Respiratory Exam: Normal Lung Sounds Bilat; negative Chest Wall Tenderness, Prolonged Expiratory Phase, Respiratory Distress or Stridor Cardiovascular Cardiovascular Exam: Regular Rate, Normal Rhythm and Normal Heart Sounds Abdominal Exam Abdominal Exam: Normal Inspection, Normal Bowel Sounds, Tenderness and Guarding; negative Rigidity, Ascites or Pulsatile Mass Extremeties Extremities Exam: Normal Inspection Neurologic Neurological Exam: Alert and Oriented X3 MDM Differential Diagnosis Differential Diagnosis- Considerations may include:: Bowel Obstruction, Ischemic Bowel and Other (comments) (Complications of recent ruptured appendix) COURSE Reevaluation 1st: Unchanged (Patient surgeon called the ER has seen the reports and results and has requested the patient be admitted to him for admission and treatment while in the hospital) Consultation Consultation Comments: The patient's surgeon Has seen the patient in the ER and has written his own admission orders. ROR Labs Reviewed 07/28/25 12:40 07/28/25 12:40 Laboratory: WBC 6.7 X10^3/uL (3.6-10.0) 07/28/25 12:40 RBC 4.50 X10^6/uL (3.5-5.4) 07/28/25 12:40 Hgb 13.0 g/dL (12.0-16.0) 07/28/25 12:40 Hct 38.6 % (36.0-47.0) 07/28/25 12:40 MCV 86.0 fL (80.0-100.0) 07/28/25 12:40 MCH 29.0 pg (27.0-34.0) 07/28/25 12:40 MCHC 33.7 g/dL (33.0-35.0) 07/28/25 12:40 RDW 13.7 % (11.6-16.5) 07/28/25 12:40 Plt Count 294 X10^3/uL (150.0-450.0) 07/28/25 12:40 MPV 7.6 fL (7.4-11.0) 07/28/25 12:40 Neut % (Auto) 68.7 % (42.0-75.0) 07/28/25 12:40 Lymph % (Auto) 19.3 % (21.0-51.0) L 07/28/25 12:40 [place] % (Auto) 7.5 % (0.0-13.0) 07/28/25 12:40 Eos % (Auto) 4.1 % (0.9-2.9) H 07/28/25 12:40 Baso % (Auto) 0.4 % (0.2-1.0) 07/28/25 12:40 Neut # (Auto) 4.6 x10^3/uL (2.2-4.8) 07/28/25 12:40 Lymph # (Auto) 1.3 X10^3/uL (1.3-2.9) 07/28/25 12:40 [place] # (Auto) 0.5 x10^3/uL (0.3-0.8) 07/28/25 12:40 Eos # (Auto) 0.3 x10^3/uL (0.0-0.2) H 07/28/25 12:40 Baso # (Auto) 0.0 X10^3/uL (0.0-0.1) 07/28/25 12:40 Absolute Nucleated RBC 0.1 /100WBC 07/28/25 12:40 Sodium 142 mmol/L (136-145) 07/28/25 12:40 Corrected Sodium TNP 07/28/25 12:40 Potassium 4.1 mmol/L (3.5-5.1) 07/28/25 12:40 Chloride 104 mmol/L (98-107) 07/28/25 12:40 Carbon Dioxide 30.9 mmol/L (21-32) 07/28/25 12:40 BUN 23 mg/dL (7-18) H 07/28/25 12:40 Creatinine 0.77 mg/dL (0.55-1.02) 07/28/25 12:40 Est GFR (MDRD) Af Amer > 60 (>60) 07/28/25 12:40 Est GFR (MDRD) Non-Af > 60 (>60) 07/28/25 12:40 Glucose 93 mg/dL (65-99) 07/28/25 12:40 Calcium 8.5 mg/dL (8.5-10.1) 07/28/25 12:40 Corrected Calcium 9.1 mg/dL (8.5-10.1) 07/28/25 12:40 Total Bilirubin 0.50 mg/dL (0.2-1.0) 07/28/25 12:40 AST 20 Units/L (15-37) 07/28/25 12:40 ALT 18 Units/L (12-78) 07/28/25 12:40 Alkaline Phosphatase 92 Units/L (46-116) 07/28/25 12:40 Total Protein 6.7 g/dL (6.4-8.2) 07/28/25 12:40 Albumin 3.3 g/dL (3.4-5.0) L 07/28/25 12:40 Globulin 3.4 g/dL (2.5-4.5) 07/28/25 12:40 Albumin/Globulin Ratio 1.0 Ratio (1.1-2.1) L 07/28/25 12:40 Amylase 38 Units/L (25-115) 07/28/25 12:40 Lipase 36 Units/L (16-77) 07/28/25 12:40 Specimen Type Clean catch urine 07/28/25 13:23 Urine Color Yellow (YELLOW) 07/28/25 13:23 Urine Appearance Hazy (CLEAR) 07/28/25 13:23 Urine pH 6.0 (5.0 - 8.0) 07/28/25 13:23 Ur Specific [place] 1.020 (1.000-1.030) 07/28/25 13:23 Urine Protein 2+ (NEGATIVE) 07/28/25 13:23 Urine Glucose (UA) Negative (NEGATIVE) 07/28/25 13:23 Urine Ketones Negative (NEGATIVE) 07/28/25 13:23 Urine Blood Negative (NEGATIVE) 07/28/25 13:23 Urine Nitrite Negative (NEGATIVE) 07/28/25 13:23 Urine Bilirubin Negative (NEGATIVE) 07/28/25 13:23 Urine Urobilinogen Normal (NORMAL) 07/28/25 13:23 Ur Leukocyte Esterase 2+ (NEGATIVE) 07/28/25 13:23 Urine RBC 0-2 /HPF (0-3) 07/28/25 13:23 Urine WBC 5-10 /HPF (0-5) A 07/28/25 13:23 Ur Squamous Epith Cells Moderate /HPF (NEGATIVE) 07/28/25 13:23 Ur Transition Epith Cell Few /HPF (NEGATIVE) 07/28/25 13:23 Urine Bacteria Trace /HPF (NEGATIVE) 07/28/25 13:23 Urine Mucus Few /HPF (NEGATIVE) 07/28/25 13:23 Ur Culture Indicated? No/not indicated 07/28/25 13:23 XRAY XRAY Interpreted by: Radiologist X-ray Results: Radiology results were evaluated by the patient's surgeon and he internal controls consultant called the emergency department and asked the patient to be admitted to him. Opioid Opioid Risk Tool Age ([place]oper box if 16-45): No History of Preadolescent Sexual Abuse: No Total: 0 Total Score Risk Category: Low Risk Copyright: [facility] predicting aberrant behaviors Discharge Plan Diagnosis Discharge Problem: Abdominal pain Discharge Plan Patient Disposition: ADMITTED INPATIENT Condition: Stable Prescriptions: No Action hydrocodone-acetaminophen [[place]] 5-325 mg Tablet 1 tab PO Q4H PRN (Reason: Pain (Scale Score 7-10)) pantoprazole [Protonix] 40 mg Tablet,Delayed Release (Dr/Ec) 40 mg PO DAILY vitamin D3-vitamin K2 250 mcg (10,000 unit)-45 mcg Capsule 1 cap PO QDAY [place] oleifera 500 mg Capsule 500 mg PO DAILY ketorolac 10 mg Tablet 10 mg PO Q6H PRNQty: 20 0RF Rx Instructions: maximum total duration of 5 days from all oral, intranasal, or parenteral formulations hydroxyzine HCl 25 mg Tablet 25 mg PO Q8H PRNQty: 30 0RF Health Concerns: Post Hospitalization: new medications and changes needed to prevent readmission or further decline. Pt educated and given instructions on all concerns. Plan of Treatment: Continue with present treatment and follow up plan. Pt is to keep follow up appointment as instructed and take medications as ordered. Follow ups/Referrals Follow ups/Referrals: Cindy Hassan [Primary Care Provider, Unknown] - 3 days Instructions Stand Alone Forms: Find Help Web Site, Post Hospital Follow Up Care Print Language: ETHIOPIAN
[2025-07-28 13:55] LABS: BLOOD/HEMOGLOBIN,URINE NEGATIVE (NEGATIVE); LEUKOCYTE ESTERASE ,URINE 2+ (NEGATIVE); NITRITES,URINE NEGATIVE (NEGATIVE)
[2025-07-28 14:08] LABS: APPEARANCE,URINE HAZY (CLEAR); SQUAMOUS EPITHELIAL CELL,UR MODERATE /HPF (NEGATIVE)
[2025-07-28] MEDS ORDERED: ZOFRAN INJ 4 MG VIAL IVP PRN (16:50)
[2025-07-28] MEDS ORDERED: TORADOL 30 MG VIAL IVP PRN (16:50)
[2025-07-28] MEDS ORDERED: D5 1/2 NS 1,000 ML 1,000 ML IV ONE (16:57)
[2025-07-28] MEDS: D5 1/2 NS 1,000 ML 1,000 ML IV SCH (17:00)
[2025-07-28] MEDS: PROTONIX INJ 40 MG VIAL IVP SCH (20:33)
[2025-07-29] MEDS: NEOSPORIN OINT ONE (01:50)
[2025-07-29 05:44] LABS: MEAN PLATELET VOLUME 7.7 fL (7.4-11.0); RED CELL DISTRIBUTION WIDTH 13.9 % (11.6-16.5)
[2025-07-29 05:58] LABS: COR CA(FOR HYPOALB) 9.1 mg/dL (8.5-10.1); CREATININE 0.73 mg/dL (0.55-1.02); eGFR NON BLACK RACES > 60 (>60)
--- NOTE | 2025-07-29 08:30 | DR.PROGNOT ---
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 There was no evidence of distant metastasis. Patient is complaining of diffuse abdominal pain more towards the right side and flank, patient was complaining of nausea and persistent vomiting with dehydration. No further vomiting today but she is still nauseated and she is scheduled for gallbladder ultrasound. Her white count is 5.6, hemoglobin 11.6, platelet count 268, BUN/creatinine electrolytes and liver function tests all normal, albumin is 2.9 amylase lipase are normal, urinalysis showed 5-10 WBC with trace bacteria. CEA level is not available yet. Abdominal pelvic CT scan showed small volume ascites, somewhat dilated small bowel loops consistent with enteritis without clear obstruction. Patient is afebrile with soft full abdomen with diffuse tenderness, bowel sounds are hypoactive, clean incision no evidence of wound infection. Past Medical Family Social History Allergies: Allergies hydrocodone Allergy (Mild, Verified 07/28/25 11:37) RASH atropine (From ) Allergy (Verified 07/28/25 11:37) hyoscyamine (From ) Allergy (Verified 07/28/25 11:37) meperidine (From Demerol) Allergy (Verified 07/28/25 11:37) morphine Allergy (Verified 07/28/25 11:37) phenobarbital (From ) Allergy (Verified 07/28/25 11:37) scopolamine (From ) Allergy (Verified 07/28/25 11:37) Vital Signs Vital Signs: Vital Signs Temperature 98.0 F Pulse Rate [Right Brachial] 75 Respiratory Rate 18 Blood Pressure [Right Arm] 113/54 O2 Sat by Pulse Oximetry 93 Physical Exam Oriented: Normal Eyes: Normal Ear: Normal Nose: Normal Throat: Normal Respiratory: Normal Cardiovascular: Normal GI:Auscultation: Decreased GI:Palpation: Normal GI: Tenderness: Diffuse (Moderate diffuse tenderness more towards the right side of the abdomen.) Speech Pattern: Clear Laboratory and Diagnostics 07/29/25 05:18 07/29/25 05:18 Labs: Laboratory WBC 5.6 X10^3/uL (3.6-10.0) 07/29/25 05:18 RBC 3.99 X10^6/uL (3.5-5.4) 07/29/25 05:18 Hgb 11.6 g/dL (12.0-16.0) L 07/29/25 05:18 Hct 33.9 % (36.0-47.0) L 07/29/25 05:18 MCV 85.1 fL (80.0-100.0) 07/29/25 05:18 MCH 29.2 pg (27.0-34.0) 07/29/25 05:18 MCHC 34.3 g/dL (33.0-35.0) 07/29/25 05:18 RDW 13.9 % (11.6-16.5) 07/29/25 05:18 Plt Count 268 X10^3/uL (150.0-450.0) 07/29/25 05:18 MPV 7.7 fL (7.4-11.0) 07/29/25 05:18 Neut % (Auto) 58.9 % (42.0-75.0) 07/29/25 05:18 Lymph % (Auto) 25.0 % (21.0-51.0) 07/29/25 05:18 [place] % (Auto) 9.3 % (0.0-13.0) 07/29/25 05:18 Eos % (Auto) 6.5 % (0.9-2.9) H 07/29/25 05:18 Baso % (Auto) 0.3 % (0.2-1.0) 07/29/25 05:18 Neut # (Auto) 3.3 x10^3/uL (2.2-4.8) 07/29/25 05:18 Lymph # (Auto) 1.4 X10^3/uL (1.3-2.9) 07/29/25 05:18 [place] # (Auto) 0.5 x10^3/uL (0.3-0.8) 07/29/25 05:18 Eos # (Auto) 0.4 x10^3/uL (0.0-0.2) H 07/29/25 05:18 Baso # (Auto) 0.0 X10^3/uL (0.0-0.1) 07/29/25 05:18 Absolute Nucleated RBC 0.1 /100WBC 07/29/25 05:18 Sodium 142 mmol/L (136-145) 07/29/25 05:18 Corrected Sodium TNP 07/29/25 05:18 Potassium 4.1 mmol/L (3.5-5.1) 07/29/25 05:18 Chloride 107 mmol/L (98-107) 07/29/25 05:18 Carbon Dioxide 30.5 mmol/L (21-32) 07/29/25 05:18 BUN 12 mg/dL (7-18) 07/29/25 05:18 Creatinine 0.73 mg/dL (0.55-1.02) 07/29/25 05:18 Est GFR (MDRD) Af Amer > 60 (>60) 07/29/25 05:18 Est GFR (MDRD) Non-Af > 60 (>60) 07/29/25 05:18 Glucose 104 mg/dL (65-99) H 07/29/25 05:18 Calcium 8.2 mg/dL (8.5-10.1) L 07/29/25 05:18 Corrected Calcium 9.1 mg/dL (8.5-10.1) 07/29/25 05:18 Total Bilirubin 0.40 mg/dL (0.2-1.0) 07/29/25 05:18 AST 16 Units/L (15-37) 07/29/25 05:18 ALT 18 Units/L (12-78) 07/29/25 05:18 Alkaline Phosphatase 74 Units/L (46-116) 07/29/25 05:18 Total Protein 5.9 g/dL (6.4-8.2) L 07/29/25 05:18 Albumin 2.9 g/dL (3.4-5.0) L 07/29/25 05:18 Globulin 3.0 g/dL (2.5-4.5) 07/29/25 05:18 Albumin/Globulin Ratio 1.0 Ratio (1.1-2.1) L 07/29/25 05:18 Amylase 38 Units/L (25-115) 07/28/25 12:40 Lipase 36 Units/L (16-77) 07/28/25 12:40 Specimen Type Clean catch urine 07/28/25 13:23 Urine Color Yellow (YELLOW) 07/28/25 13:23 Urine Appearance Hazy (CLEAR) 07/28/25 13:23 Urine pH 6.0 (5.0 - 8.0) 07/28/25 13:23 Ur Specific [place] 1.020 (1.000-1.030) 07/28/25 13:23 Urine Protein 2+ (NEGATIVE) 07/28/25 13:23 Urine Glucose (UA) Negative (NEGATIVE) 07/28/25 13:23 Urine Ketones Negative (NEGATIVE) 07/28/25 13:23 Urine Blood Negative (NEGATIVE) 07/28/25 13:23 Urine Nitrite Negative (NEGATIVE) 07/28/25 13:23 Urine Bilirubin Negative (NEGATIVE) 07/28/25 13:23 Urine Urobilinogen Normal (NORMAL) 07/28/25 13:23 Ur Leukocyte Esterase 2+ (NEGATIVE) 07/28/25 13:23 Urine RBC 0-2 /HPF (0-3) 07/28/25 13:23 Urine WBC 5-10 /HPF (0-5) A 07/28/25 13:23 Ur Squamous Epith Cells Moderate /HPF (NEGATIVE) 07/28/25 13:23 Ur Transition Epith Cell Few /HPF (NEGATIVE) 07/28/25 13:23 Urine Bacteria Trace /HPF (NEGATIVE) 07/28/25 13:23 Urine Mucus Few /HPF (NEGATIVE) 07/28/25 13:23 Ur Culture Indicated? No/not indicated 07/28/25 13:23 Assessment and Plan 1: Abdominal pain with persistent nausea and vomiting, dehydration. On IV fluid and for gallbladder ultrasound today. 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 To obtain CEA level and oncology referral. Problem Patient Problems: Patient Problems Abdominal pain (Acute) R10.9
[2025-07-29] MEDS: LOVENOX INJ 40 MG SYR SC SCH (08:41)
--- NOTE | 2025-07-29 11:09 | US ---
EXAM: ULTRASOUND GALLBLADDER HISTORY: ABD PAIN; COMPARISON: CT dated 07/28/2025. TECHNIQUE: Ultrasound of the right upper quadrant was performed. Color and spectral doppler imaging was utilized. FINDINGS: Pancreas: Visualized portions are unremarkable. Liver/bile ducts: Mildly heterogeneous parenchyma. No focal liver lesion identified. No intrahepatic biliary dilatation. Common bile duct measures 3 mm. Normal hepatopetal portal venous blood flow. Gallbladder: Nondistended. No shadowing gallstones. No wall thickening or pericholecystic fluid. Right kidney: Unremarkable. No hydronephrosis or shadowing calculi. IMPRESSION: No acute findings. Normal gallbladder. No biliary dilatation. THIS IS AN ELECTRONICALLY VERIFIED FINAL REPORT 07/29/2025 11:05 AM - Electronically signed by Radu Rees MD
[2025-07-30 05:57] LABS: MEAN PLATELET VOLUME 7.8 fL (7.4-11.0); RED CELL DISTRIBUTION WIDTH 13.8 % (11.6-16.5)
[2025-07-30 06:08] LABS: COR NA(FOR HYPERGLY) 143 mmol/L (136-145); CREATININE 0.68 mg/dL (0.55-1.02); eGFR NON BLACK RACES > 60 (>60)
[2025-07-30 06:14] LABS: COR CA(FOR HYPOALB) 9.1 mg/dL (8.5-10.1)
[2025-07-30] MEDS: DIPRIVAN VIAL 20 ML ONE (12:00)
[2025-07-30] MEDS: NS 1,000 ML IV 1,000 ML ONE (12:04)
[2025-07-30] MEDS: NS 1,000 ML IV 250 ML IV PRN (12:06)
[2025-07-30] MEDS: XYLOCAINE 2 % (PLAIN) IVP PRN (12:10)
[2025-07-30] MEDS: DIPRIVAN VIAL 140 ML IVP PRN (12:12)
[2025-07-30] MEDS: CARAFATE PO SCH (15:53)
[2025-07-31 02:43] VITALS: RESP 18
[2025-07-31 05:51] LABS: MEAN PLATELET VOLUME 7.7 fL (7.4-11.0); RED CELL DISTRIBUTION WIDTH 13.6 % (11.6-16.5)
[2025-07-31 06:18] LABS: COR CA(FOR HYPOALB) 9.2 mg/dL (8.5-10.1); CREATININE 0.59 mg/dL (0.55-1.02); eGFR NON BLACK RACES > 60 (>60)
[2025-07-31] MEDS ORDERED: CONSULT PHARMACY - POTASSIUM & MAGNESIUM XX SCH (07:00)
[2025-07-31 08:46] VITALS: BP 131/76; PULSE 71; TEMP 98.6; O2SAT 96
[2025-07-31] MEDS: COLACE CAP 100 MG PO SCH (10:17)
[2025-07-31] MEDS: MAG-OX TAB PO SCH (10:17)
[2025-07-31] MEDS: K-DUR TAB 20 MEQ PO SCH (10:17)
--- NOTE | 2025-07-31 11:56 | RAD ---
EXAM: KUB HISTORY: abd pain; had appendix and tumor removed 07/10/[address] Ceja. COMPARISON: CT dated 07/28/2025 TECHNIQUE: AP abdomen, supine FINDINGS: No abnormally distended bowel loops. No significant colonic stool burden. Small pelvic phleboliths. IMPRESSION: Nonobstructive bowel gas pattern. THIS IS AN ELECTRONICALLY VERIFIED FINAL REPORT 07/31/2025 11:53 AM - Electronically signed by Radu Rees MD
== END 2025-07-31 15:55 | disposition home or self-care (01) ==
LOC: ER 11:19 → MED/SURG 11:19
PROVIDERS: ADMIT Surgery; ATTEND Surgery
DX: R10.84 Generalized abdominal pain; R73.09 Other abnormal glucose; R11.2 Nausea with vomiting, unspecified; E86.0 Dehydration; E83.42 Hypomagnesemia; Z98.890 Other specified postprocedural states; C18.1 Malignant neoplasm of appendix; K29.00 Acute gastritis without bleeding; R79.89 Other specified abnormal findings of blood chemistry; K91.89 Other postprocedural complications and disorders of digestive system; Z87.11 Personal history of peptic ulcer disease; E83.51 Hypocalcemia; Z79.899 Other long term (current) drug therapy